=== PATIENT | male | born 1960 | race Caucasian/White ===

== ENCOUNTER 2019-05-01 14:42 | Outpatient (RCR) | payer OTHER ==
[2019-07-11] MEDS ORDERED: LANTUS 3ML100 UNITS/ SC (09:20)
[2019-07-11] MEDS ORDERED: ROVASTATIN PO (09:20)
[2019-07-11] MEDS ORDERED: HUMALOG100 UNIT/1 SC (09:20)
[2019-07-11] MEDS ORDERED: ASPIRIN325 MG PO (09:20)
[2019-07-11] MEDS ORDERED: CLONAZEPAM1 MG PO (09:20)
[2019-07-11] MEDS ORDERED: FLUOXETINE DR90 MG PO (09:20)
[2019-07-11] MEDS ORDERED: FLOMAX0.4 MG PO (09:20)
== END 2019-05-11 ==
LOC: PT 14:42
PROVIDERS: ATTEND Specialist
DX: M75.102 Unspecified rotator cuff tear or rupture of left shoulder, not specified as traumatic (principal); M25.512 Pain in left shoulder; M25.612 Stiffness of left shoulder, not elsewhere classified; M62.81 Muscle weakness (generalized)
CPT/HCPCS: 97139

== ENCOUNTER → 2019-07-16 | Day surgery (SDC) | payer OTHER ==
[2019-07-11 11:45] LABS: ANION GAP 16.6 mmol/L (8-16); BLOOD UREA NITROGEN 7 mg/dL (7-26); BUN/CREATININE RATIO 7 (6-25); CALCIUM 9.8 mg/dL (8.4-10.2); CARBON DIOXIDE 24 mmol/L (22-29); CHLORIDE 99 mmol/L (98-107); CREATININE, SERUM 1.06 mg/dL (0.72-1.25); EST GLOMERULAR FILTRATION RATE > 60 ML/MIN (60-); GLUCOSE 280 mg/dL (74-118); POTASSIUM 3.6 mmol/L (3.5-5.1); SODIUM 136 mmol/L (136-145)
[~2019-07-16] MED LIST: ACETAMINOPHEN 1000 MG/100 ML IV ONE; ASPIRIN325 MG PO; BUPIVACAINE HCL 0.5% INJ 30 ML VIAL INJ ONE; CEFAZOLIN SOD 1 GM/NS 50ML 100 ML IV ONE; CLONAZEPAM1 MG PO; DEXAMETHASONE SOD PHOS INJ 4 MG/ML VIAL ONE; EPINEPHRINE 1 MG/ML 30ML VIAL ONE; EPINEPHRINE HCL 1:1000 1ML 1 MG/ML AMP ONE; FENTANYL CITRATE/PF 100MCG/2 ML INJ ONE; FLOMAX0.4 MG PO; FLUOXETINE DR90 MG PO; HUMALOG100 UNIT/1 SC; INSULIN REGULAR, HUMAN 100 UNIT/1 ML 3ML VIAL ONE; LANTUS 3ML100 UNITS/ SC; LIDOCAINE HCL 2% JELLY 5 ML TUBE ONE; LIDOCAINE HCL 2% LOCAL INJ 5 ML SDV VIAL INJ ONE; MIDAZOLAM HCL 2 MG/2 ML VIAL ONE; ONDANSETRON HCL INJ 2MG/ML 2ML 2 MG/ML VIAL ONE; PROPOFOL IV EMULSION 10 MG/ML 20 ML VIAL ONE; ROCURONIUM BROMIDE 10 MG/ML 5ML VIAL ONE; ROVASTATIN PO; SEVOFLURANE INHAL SOLN 250 ML PEN BTL ONE
[2019-07-16 10:20] VITALS: BP 123/80
--- NOTE | 2019-07-17 17:07 | Operative Report ---
DATE OF PROCEDURE: 07/16/2019 SURGEON: Kirk Schroeder MD PREOPERATIVE DIAGNOSES: Left shoulder labral tear, left shoulder rotator cuff tendinosis. POSTOPERATIVE DIAGNOSES: Arthrofibrosis, left shoulder. 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 OPERATIONS AND PROCEDURES PERFORMED: The patient underwent a left shoulder manipulation under anesthesia, a left shoulder arthroscopy, left shoulder debridement of synovitis, left shoulder chondroplasty of the humeral head, left shoulder arthroscopic biceps tenodesis, a left shoulder arthroscopic subacromial decompression and acromioplasty. 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 ANESTHESIA: General endotracheal intubation anesthesia. IV FLUIDS: Per the anesthesia record. BRIEF DESCRIPTION OF THE PATIENT'S OPERATIVE PROCEDURE: Mr. Schroeder was taken to the operating room, placed in supine position on the operating table. Following induction of general anesthesia as well as endotracheal intubation, the patient's table was converted to a beach chair type position. Left upper extremity was examined under anesthesia. He had full passive range of motion of the elbow, wrist, and hand. Passive range of motion of the shoulder demonstrated approximately loss of 30 degrees of forward flexion and abduction. The arm was gently manipulated under anesthesia and this resulted in a release of adhesions about the shoulder joint. Following the release of these adhesions and manipulation of the shoulder anesthesia, the patient had full range of motion of the shoulder joint. The patient's shoulder and upper extremity were then prepped and draped in standard surgical fashion. The case was begun by creating anterior and posterior lateral portals. The scope was placed in the shoulder joint atraumatically. Examination of the glenohumeral articulation demonstrated chondromalacia of the humeral head. There was diffuse synovitis in the shoulder joint. There were no loose bodies in the shoulder. The articular surface of the rotator cuff was without injury. A shaver was placed in the shoulder joint and the synovitis was debrided. A chondroplasty of the humeral head was also performed at this time. A probe was then placed in the shoulder joint and examination of the labrum demonstrated diffuse tearing of the labrum and biceps anchor. The anterior labral was severely deficient. A shaver was used to debride the labral injury. Given the deficiency in the anterior labrum, the decision was made to perform an intra-articular biceps tenodesis. The rotator interval was debrided. Sutures were shuttled through the rotator interval capturing the biceps tendon. The biceps tendon was then released from its attachment to the superior aspect of the glenoid. The biceps tendon was then drawn into the rotator interval. The shoulder was then deflated with sterile normal saline. The scope was transferred to subacromial space and a lateral portal was created with an outside in technique. Significant bursal inflammation was encountered. A bursectomy was performed. The sutures for the biceps tenodesis were identified in the anterior shoulder. These were captured and tied over the rotator interval. There was mild inflammation in the rotator cuff tissue, but no tear of the bursal surface. The patient had a downward sloping acromion impinging upon the rotator cuff tissue. A shaver was used to provide the patient an aggressive acromioplasty. Shoulder was placed through range of motion and found to not impinge following the acromioplasty. The shoulder was then inflated with a sterile normal saline. The portal sites were closed. Sterile dressings were applied. The patient was provided a shoulder immobilizer, awakened, and taken to the postanesthesia care unit in stable condition. MD SUZETTE Harkins/NGOZI /[id number]
== END | disposition home or self-care (01) ==
LOC: OR 05:16
PROVIDERS: ATTEND Specialist
DX: S43.432A Superior glenoid labrum lesion of left shoulder, initial encounter (principal); M65.812 Other synovitis and tenosynovitis, left shoulder; M24.612 Ankylosis, left shoulder; M94.212 Chondromalacia, left shoulder; G62.9 Polyneuropathy, unspecified; G57.50 Tarsal tunnel syndrome, unspecified lower limb; G47.33 Obstructive sleep apnea (adult) (pediatric); E78.5 Hyperlipidemia, unspecified; E11.9 Type 2 diabetes mellitus without complications; F41.9 Anxiety disorder, unspecified; F32.9 Major depressive disorder, single episode, unspecified; F17.210 Nicotine dependence, cigarettes, uncomplicated; Z01.810 Encounter for preprocedural cardiovascular examination; Z01.812 Encounter for preprocedural laboratory examination; Z79.82 Long term (current) use of aspirin; Z79.4 Long term (current) use of insulin
CPT/HCPCS: 29826; 29828; 36415 ×2; 80048; 82948; 93005; J0131; J0171; J0690; J1100; J2001 ×2; J2250; J2405; J2704; J3010; J1817

== ENCOUNTER → 2019-09-11 | Outpatient (RCR) | payer OTHER ==
[~2019-09-11] MED LIST changes: -ACETAMINOPHEN 1000 MG/100 ML IV ONE; -BUPIVACAINE HCL 0.5% INJ 30 ML VIAL INJ ONE; -CEFAZOLIN SOD 1 GM/NS 50ML 100 ML IV ONE; -DEXAMETHASONE SOD PHOS INJ 4 MG/ML VIAL ONE; -EPINEPHRINE 1 MG/ML 30ML VIAL ONE; -EPINEPHRINE HCL 1:1000 1ML 1 MG/ML AMP ONE; -FENTANYL CITRATE/PF 100MCG/2 ML INJ ONE; -INSULIN REGULAR, HUMAN 100 UNIT/1 ML 3ML VIAL ONE; -LIDOCAINE HCL 2% JELLY 5 ML TUBE ONE; -LIDOCAINE HCL 2% LOCAL INJ 5 ML SDV VIAL INJ ONE; -MIDAZOLAM HCL 2 MG/2 ML VIAL ONE; -ONDANSETRON HCL INJ 2MG/ML 2ML 2 MG/ML VIAL ONE; -PROPOFOL IV EMULSION 10 MG/ML 20 ML VIAL ONE; -ROCURONIUM BROMIDE 10 MG/ML 5ML VIAL ONE; -SEVOFLURANE INHAL SOLN 250 ML PEN BTL ONE
== END ==
LOC: PT 09-03 10:33
PROVIDERS: ATTEND Specialist
DX: M75.22 Bicipital tendinitis, left shoulder (principal); M25.512 Pain in left shoulder; M62.81 Muscle weakness (generalized); M25.612 Stiffness of left shoulder, not elsewhere classified

== ENCOUNTER 2019-10-10 09:48 | Outpatient (RCR) | payer OTHER | END 2019-10-11 | LOC: PT 09:48 | PROVIDERS: ATTEND Specialist | DX: M75.102 Unspecified rotator cuff tear or rupture of left shoulder, not specified as traumatic (principal); M75.22 Bicipital tendinitis, left shoulder; M62.81 Muscle weakness (generalized); M25.512 Pain in left shoulder; M25.612 Stiffness of left shoulder, not elsewhere classified | CPT/HCPCS: 97139 ==

== ENCOUNTER 2020-01-11 18:32 | Emergency (ER) | payer OTHER ==
[~2020-01-11] VITALS: Ht 213.4 cm; Wt 111.1 kg
[2020-01-11] MEDS ORDERED: SODIUM CHLORIDE 0.9% 1000ML 2,000 ML IV SCH (19:00)
[2020-01-11] MEDS ORDERED: SODIUM CHLORIDE 0.9% 1000ML 2,000 ML ONE (19:02)
[2020-01-11 19:12] LABS: BASOPHILS % 0.7 % (0.0-1.0); EOSINOPHILS # (AUTO) 0.3 (0.0-0.4); EOSINOPHILS % 5.4 % (0.0-6.0); HEMATOCRIT 46.1 % (38.2-49.6); HEMOGLOBIN 16.4 g/dL (14.0-18.0); LYMPHOCYTES # (AUTO) 2.2 (1.0-3.2); LYMPHOCYTES % 39.2 % (18.0-39.1); MEAN CORPUSCULAR HEMOGLOBIN 30.7 pg (28-32); MEAN CORPUSCULAR HGB CONC 35.6 g/dL (31-35); MEAN CORPUSCULAR VOLUME 86.2 fL (81-99); MONOCYTES # (AUTO) 0.4 (0.2-0.8); MONOCYTES % 7.7 % (4.4-11.3); NEUTROPHILS # (AUTO) 2.6 (2.1-6.9); NEUTROPHILS % 46.5 % (38.7-80.0); PLATELET COUNT 205 x10e3/uL (140-360); RED BLOOD COUNT 5.35 x10e6/uL (4.3-5.7)
[2020-01-11 19:16] LABS: INR 0.97; PROTHROMBIN TIME 13.5 seconds (11.9-14.5)
[2020-01-11 19:17] LABS: PARTIAL THROMBOPLASTIN TIME 25.8 seconds (23.8-35.5)
--- NOTE | 2020-01-11 19:22 | NUR ---
RT called for ABG at this time.
[2020-01-11 19:26] LABS: ALBUMIN 4.2 g/dL (3.5-5.0); ALBUMIN/GLOBULIN RATIO 1.5 (0.8-2.0); ANION GAP 11.8 mmol/L (8-16); CALCIUM 9.6 mg/dL (8.4-10.2); CREATININE, SERUM 1.4 mg/dL (0.72-1.25); POTASSIUM 3.8 mmol/L (3.5-5.1)
--- NOTE | 2020-01-11 19:33 | NUR ---
ER MD AND PRIMARY RN NOTIFIED AND AWARE OF CRITICAL LAB VALUE, [id number].
[2020-01-11] MEDS ORDERED: INSULIN REGULAR, HUMAN 100 UNIT/1 ML 3ML VIAL IV NR (19:45)
[2020-01-11 19:47] LABS: CLARITY,URINE CLEAR (CLEAR); COLOR,URINE YELLOW (YELLOW); LEUKOCYTE ESTERASE ,URINE NEGATIVE (NEGATIVE)
[2020-01-11 19:48] LABS: BACTERIA,URINE FEW /HPF; BILIRUBIN,URINE NEGATIVE (NEGATIVE); KETONES,URINE NEGATIVE (NEGATIVE); NITRITE,URINE NEGATIVE (NEGATIVE); PROTEIN,URINE DIPSTICK NEGATIVE (NEGATIVE); URINE UROBILINOGEN 0.2 mg/dL (0.2 - 1); WBC,URINE (MAN) 0-5 /HPF (0-5)
[2020-01-11 19:50] LABS: EPITHELIAL CELLS,URINE FEW /LPF
[2020-01-11] MEDS ORDERED: INSULIN REGULAR, HUMAN 100 UNIT/1 ML 3ML VIAL ONE (19:51)
--- NOTE | 2020-01-11 20:09 | Diagnostic Imaging Report ---
Examination: Single AP view of the chest. COMPARISON: None. INDICATION: Hyperglycemia DISCUSSION: The lungs are well inflated. No focal consolidation, pleural effusion, or pneumothorax. Cardiomediastinal contour and pulmonary vasculature are within normal limits when accounting for AP technique and rightward patient rotation. No acute osseous abnormalities. IMPRESSION: 1. No acute cardiopulmonary abnormalities. Signed by: Dr. Cash Salgado M.D. on 01/11/2020 8:06 PM
[2020-01-11] MEDS ORDERED: INSULIN REGULAR, HUMAN 100 UNIT/1 ML 3ML VIAL IV ONE (20:30)
[2020-01-11 21:31] VITALS: BP 139/89
== END 2020-01-11 21:35 | disposition home or self-care (01) ==
LOC: ER 18:32
DX: E11.65 Type 2 diabetes mellitus with hyperglycemia (principal); I10 Essential (primary) hypertension; E78.5 Hyperlipidemia, unspecified; F41.9 Anxiety disorder, unspecified
CPT/HCPCS: 36415; 71045; 80053; 81001; 82550; 82553; 82948; 84484; 85025; 85610; 85730; 87086; 93005; 99284; J1817; J7030